=== PATIENT | male | born 1995 | race African-American/Black ===

== ENCOUNTER 2021-02-28 15:29 | Emergency (ER) | payer SELFPAY ==
[~2021-02-28] VITALS: Ht 185.4 cm; Wt 88.0 kg
[2021-02-28 15:39] VITALS: BP 120/85
[2021-02-28] MEDS ORDERED: POLY10DR3 EACHEYE (15:51)
== END 2021-02-28 16:30 | disposition home or self-care (01) ==
LOC: ER 15:29
DX: H10.31 Unspecified acute conjunctivitis, right eye (principal)
CPT/HCPCS: 99283